=== PATIENT | male | born 1980 | race Caucasian/White ===

== ENCOUNTER 2016-10-28 16:40 | Emergency (ER) | payer OTHER ==
[~2016-10-28] VITALS: Ht 172.7 cm; Wt 66.0 kg
[~2016-10-28 16:40] MED LIST: DOXY100T PO; ERYT.5%O LEFT EYE; LORT5TAB PO; SULF-154 PO; TRAM50 PO; Z.0.NO CURRENT MEDS
[2016-10-28 16:45] VITALS: BP 141/94; PULSE 102; RESP 15; TEMP 98.1; O2SAT 99
[2016-10-28] MEDS ORDERED: [UNRECOGNIZED DRUG - OTHER] (17:49)
[2016-10-28] MEDS ORDERED: LIDOCAINE 1%/EPINEPHrine 1:100,000 SOLN 20 ML VIAL INFIL ONE (18:00)
--- NOTE | 2016-10-28 18:12 | PD ---
HPI . Skin infection Chief Complaint: Skin Problem Time Seen by Provider: 17:59 Travel History International Travel<30 days: No Contact w/Intl Traveler<30days: No Traveled to known affect area: No History of Present Illness HPI Patient presents with a probable infection of the skin of his left elbow. He states that it was sore starting about 6 days ago. Then about 3 or 4 days ago, he developed redness and swelling. It has gotten progressively worse over the last couple days. He reports similar episodes. He has not been running any fever. There has been no spontaneous drainage. [id number]: Left elbow DURATION: 6 days TIMING: Gradually worsening ASSOCIATED SYMPTOMS: No associated fever PFSH Past Medical History Medical History: Denies Significant Hx Integumentary: Yes (SKIN INFECTION) Tetanus Vaccination: < 5 Years Influenza Vaccination: No ?: Not Past Surgical History Surgical History: No Previous Surgery Social History Alcohol Use: Yes (OCCASIONALLY) Tobacco Use: Yes (1 PPD) Substance Use: No Allergies-Medications (Allergen,Severity, Reaction): Coded Allergies: No Known Allergies (Verified , 10/28/16) Reported Meds & Prescriptions Reported Meds & Active Scripts Active Reported [Navarrete] Review of Systems Except as stated in HPI: all other systems reviewed are Neg General / Constitutional: No: Fever, Chills Musculoskeletal: Positive: Myalgias Skin: Positive Change in Pigmentation, Positive Other (swelling) Physical Exam Narrative GENERAL: Awake and alert and in no acute distress. SKIN: Warm and dry. Redness, warmth, swelling and tenderness to the medial aspect of the left elbow. There is central fluctuance. CARDIOVASCULAR: Regular rate and rhythm. RESPIRATORY: No accessory muscle use. MUSCULOSKELETAL: No obvious deformities. No edema. NEUROLOGICAL: Awake and alert. No obvious cranial nerve deficits. Motor grossly within normal limits. Normal speech. PSYCHIATRIC: Appropriate mood and affect; insight and judgment normal. Data Data Last Documented VS Vital Signs Date Time Temp Pulse Resp B/P Pulse Ox O2 Delivery O2 Flow Rate FiO2 10/28/16 16:45 98.1 102 15 141/94 99 Orders Lidocai-Epi 1%-1:100,000 Inj (Xylocaine- (10/28/16 18:00) MDM Medical Decision Making Medical Screen Exam Complete: Yes Emergency Medical Condition: Yes Differential Diagnosis My differential diagnosis includes but is not limited to localized wound infection, cellulitis, abscess Narrative Course Patient presents with an abscess on his left elbow. It will be drained. Procedures Procedure Narrative INCISION AND DRAINAGE OF ABSCESS: The area was prepped and was sterilely draped. A subcutaneous wheal of 1 % Xylocaine with epi with a total number 1 mL was used to anesthetize the area properly. A number 11 scalpel was used to make a 0.5 -cm incision across the area of the abscess. The abscess was drained , complex loculations were broken down. Quarter inch iodoform packing was placed in the wound. Sterile dressing applied. Patient advised to have packing removed in two days. Diagnosis Primary Impression: Abscess Patient Instructions: Abscess (ED), General Instructions Med/Other Pt SpecificInfo: Prescription(s) given Scripts Tramadol (Ultram)50 Mg Tab50 Mg PO Q4H PRN (PAIN) #12 TAB Ref 0 Prov:Brittani Thurman MD 10/28/16 Sulfamethoxazole-Trimethoprim (Bactrim DS)800-160 Mg Tab1 Tab PO BID #20 TAB Ref 0 Prov:Brittani Thurman MD 10/28/16 Disposition: 01 DISCHARGE HOME Condition: Stable Brittani Thurman MD Oct 28, 2016 18:12
[2016-10-28] MEDS ORDERED: ULTR50TA5 PO (18:24)
[2016-10-28] MEDS ORDERED: BACT800T5 PO (18:24)
[2016-10-28 18:41] VITALS: BP 135/88
== END 2016-10-28 18:45 | disposition home or self-care (01) ==
LOC: PHED 16:40
DX: L02.414 Cutaneous abscess of left upper limb (principal); F17.210 Nicotine dependence, cigarettes, uncomplicated
CPT/HCPCS: 10061

== ENCOUNTER 2017-06-20 16:32 | Emergency (ER) | payer OTHER ==
[~2017-06-20] VITALS: Ht 172.7 cm; Wt 66.0 kg
[~2017-06-20 16:32] MED LIST changes: +BACT800T5 PO; -DOXY100T PO; -ERYT.5%O LEFT EYE; -LORT5TAB PO; -SULF-154 PO; -Z.0.NO CURRENT MEDS; +[UNRECOGNIZED DRUG - OTHER]
[2017-06-20 16:37] VITALS: BP 141/80; PULSE 99; RESP 16; TEMP 99.2; O2SAT 98
[2017-06-20] MEDS ORDERED: BUPR4MIS SL (17:01)
[2017-06-20] MEDS ORDERED: LIDOCAINE HCL 1% 50 ML VIAL INFIL ONE (17:15)
[2017-06-20] MEDS ORDERED: TETANUS/DIPHTHERIA TOXOID ADULT 0.5 ML VIAL IM ONE (17:15)
[2017-06-20] MEDS ORDERED: BACT800T5 PO (17:48)
[2017-06-20] MEDS ORDERED: IBUP-1129 PO (17:48)
--- NOTE | 2017-06-20 17:59 | PD ---
HPI Chief Complaint: Skin Problem Time Seen by Provider: 17:02 Travel History International Travel<30 days: No Contact w/Intl Traveler<30days: No Traveled to known affect area: No History of Present Illness HPI Raffaele is a 36 year old male who presents with an abscess on the dorsum of his right foot. He states that he first noticed pain and erythema about 2 weeks ago which has progressively gotten worse. Walking makes the pain worse and elevation and ice makes it better. He attempted to drain the abscess with a sterilized safety pin without success. 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 He has missed work work due to worsening foot pain. He denies trauma, injury or insect bites to the area. He denies fever, rashes or any other acute symptoms. Modifying Factors: None Associated Signs & Symptoms: Right foot pain, swelling, redness Risk Factors: History of MRSA skin infections PFSH Past Medical History Medical History: Denies Significant Hx Integumentary: Yes (SKIN INFECTION) Tetanus Vaccination: < 5 Years Past Surgical History Surgical History: No Previous Surgery Social History Alcohol Use: Yes (OCCASIONALLY) Tobacco Use: Yes (1 PPD) Substance Use: No (marijuanna ) Allergies-Medications (Allergen,Severity, Reaction): Coded Allergies: No Known Allergies (Verified Adverse Reaction, Unknown, 06/20/17) Reported Meds & Prescriptions Reported Meds & Active Scripts Active Motrin Ib (Ibuprofen) 200 Mg Tablet 600 Mg PO QID PRN Bactrim DS (Sulfamethoxazole-Trimethoprim) 800-160 Mg Tab 1 Tab PO BID Reported Suboxone Sublingual Film (Buprenorphine-Naloxone Sublingual Film) 4-1 Mg Film 1 Film SL Unique ID number required: Review of Systems Except as stated in HPI: all other systems reviewed are Neg Physical Exam Narrative GENERAL: Well-developed, well-nourished young white male patient, in mild distress. Awake and oriented 3. SKIN: Warm and dry. 8x8cm area of erythema on the dorsum of the right foot with fluctuant area in the center. Mild edema of the right foot and ankle. HEAD: Normocephalic. EYES: No scleral icterus. No injection or drainage. NECK: Supple, trachea midline. No JVD or lymphadenopathy. CARDIOVASCULAR: Regular rate and rhythm without murmurs, gallops, or rubs. RESPIRATORY: Breath sounds equal bilaterally. No accessory muscle use. GASTROINTESTINAL: Abdomen soft, non-tender, nondistended. MUSCULOSKELETAL: No cyanosis, or edema. BACK: Nontender without obvious deformity. No CVA tenderness. Data Data Last Documented VS Vital Signs Date Time Temp Pulse Resp B/P (MAP) Pulse Ox O2 Delivery O2 Flow Rate FiO2 06/20/17 16:37 99.2 99 16 141/80 (100) 98 Orders Orders Lidocaine 1% Inj (50 Ml) (Xylocaine 1% I (06/20/17 17:15) Tetanus/Diphtheria Tox Adult (Tetanus/Di (06/20/17 17:15) Wound Culture And Gram Stain (06/20/17 17:46) Ed Discharge Order (06/20/17 17:47) [facility] Medical Decision Making Medical Screen Exam Complete: Yes Emergency Medical Condition: Yes Medical Record Reviewed: Yes Differential Diagnosis Cellulitis versus abscess versus allergic reaction versus blister Narrative Course This appears to be significantly indurated and appears to be an abscess. I&D was done on abscess with drainage of pus. Culture sent. Wound care instructions given. Packing removal in 2 days. Return for wound check as well. Return for any worsening in pain, redness, and as needed. The plan has been discussed with him and he states her standing. Diagnosis Primary Impression: Abscess Med/Other Pt SpecificInfo: Prescription(s) given Scripts Ibuprofen (Motrin Ib) 200 Mg Tablet 600 MG PO QID Y for PAIN SCALE 1 TO 10, #20 Prov: Johanna Tavarez MD 06/20/17 Sulfamethoxazole-Trimethoprim (Bactrim DS) 800-160 Mg Tab 1 TAB PO BID for Infection, #14 TAB 0 Refills Prov: Johanna Tavarez MD 06/20/17 Disposition: 01 DISCHARGE HOME Condition: Stable Johanna Tavarez MD Jun 20, 2017 17:59
== END 2017-06-20 18:20 | disposition home or self-care (01) ==
LOC: PHED 16:32
DX: L02.611 Cutaneous abscess of right foot (principal); B95.61 Methicillin susceptible Staphylococcus aureus infection as the cause of diseases classified elsewhere; F17.210 Nicotine dependence, cigarettes, uncomplicated; Z23 Encounter for immunization; Z86.14 Personal history of Methicillin resistant Staphylococcus aureus infection
CPT/HCPCS: 10060; 10061; 86403; 87070; 87186; 87205; 90471; 90714